=== PATIENT | male | born 1960 | race Caucasian/White ===

== ENCOUNTER → 2021-06-13 08:45 | Outpatient (CLI) | payer OTHER, SELFPAY ==
[2021-06-13 20:47] LABS: COVID19 - ORCAS (NP or Nasal) Negative (Negative)
== END ==
PROVIDERS: PCP Family Medicine; Visit Provider Family Medicine
DX: U07.1 COVID-19 (principal)
CPT/HCPCS: U0003

== ENCOUNTER → 2023-07-19 09:19 | Outpatient (CLI) | payer OTHER, SELFPAY ==
--- NOTE | 2023-07-19 09:21 | DI.MRI.S_ITS ---
PROCEDURE: MR SHOULDER LT WO CON INDICATIONS: Left shoulder dysfunction TECHNIQUE: Noncontrast oblique coronal T2 fast spin echo with fat saturation, oblique sagittal T1 spin echo and T2 fast spin echo with fat saturation, axial T1 spin echo and T2 fast spin echo with fat saturation through the shoulder. COMPARISON: [facility] ([place]), CR, XR SHOULDER LT MIN 2V, 06/20/2023, 10:57. FINDINGS: Image quality: Excellent. Rotator cuff: There is mild supraspinatus and infraspinatus tendinosis with low-grade partial articular sided tearing at the supraspinatus critical zone. The teres minor tendon is intact. There is mild subscapularis tendinosis. The rotator cuff musculature is normal in bulk. Bones and bursae: Subchondral cystic changes are seen at the posterior superior humeral head and greater tuberosity near the rotator tendon insertions. No focal glenohumeral cartilage defect is seen. Mild degenerate spurring is seen in the glenoid rim. Mild to moderate degenerative changes are seen in the acromioclavicular joint with subchondral cystic changes and marginal osteophyte formation. There is a small amount of fluid in the subacromial/subdeltoid bursa. No significant glenohumeral joint fluid is seen. Capsule and soft tissues: No displaced labral tear is seen. There is mild proximal biceps long head tendinosis. Partial effacement of the normal fat signal is noted at the rotator interval. There is mild thickening of the middle glenohumeral ligament and the anterior band of the inferior glenohumeral ligament. IMPRESSION: 1. Mild low-grade partial articular surface tearing of the distal supraspinatus tendon at the critical zone. Mild diffuse rotator cuff tendinosis. 2. Mild proximal biceps tendinosis. 3. [id number] acromioclavicular joint osteoarthrosis. 4. Small subacromial/subdeltoid bursal effusion or mild bursitis. 5. Partial effacement of the rotator interval fat and mild thickening of the inferior glenohumeral ligament are nonspecific, but can be seen in the setting of the clinical syndrome of adhesive capsulitis. Approved by: Hermes Kurtz M.D. on 07/19/2023 at 14:42
== END ==
LOC: MRI 09:20
PROVIDERS: PCP Physician Assistant; Referring Provider Physician Assistant; Visit Provider Physician Assistant
DX: S46.012A Strain of muscle(s) and tendon(s) of the rotator cuff of left shoulder, initial encounter (principal); M19.012 Primary osteoarthritis, left shoulder; X58.XXXA Exposure to other specified factors, initial encounter
CPT/HCPCS: 73221

== ENCOUNTER → 2024-12-31 09:52 | Outpatient (CLI) | payer BC, SELFPAY ==
[2024-12-31 19:42] LABS: Alanine Aminotransferase 35 IU/L (<50); Albumin 4.4 g/dL (3.5-5.0); Albumin Globulin Ratio 1.5 (1.0-2.8); Alkaline Phosphatase 60 U/L (38-126); Blood Urea Nitrogen 18 mg/dL (9-20); Calcium 9.1 mg/dL (8.4-10.2); Carbon Dioxide 26 mmol/L (22-32); Chloride 101 mmol/L (98-107); Cholesterol 244 mg/dL (140-199); Estimated Glomerular Filt Rate > 60 mL/min (>60); Globulin 2.9 g/dL (1.7-4.1); Glucose 108 mg/dL (70-99); HDL Cholesterol 53 mg/dL (40-60); HEMOLYSIS 31 (0-50); Potassium 4.7 mmol/L (3.4-5.1); Sodium 136 mmol/L (137-145); Total Protein 7.3 g/dL (6.3-8.2); Triglycerides 188 mg/dL (35-150); Uric Acid 7.0 mg/dL (3.5-8.5)
[2024-12-31 20:16] LABS: TSH w/ Reflex to FT4 2.02 uIU/mL (0.47-4.68)
[2024-12-31 20:38] LABS: Add Manual Diff / Slide Review NO; Hematocrit 43.2 % (41-53); Hemoglobin 14.9 g/dL (13.5-17.5); Lymphocytes Absolute Auto 2600 /uL (1100-4500); Mean Corpuscular HGB Conc 34.5 % (30-36); Mean Corpuscular Hemoglobin 33.8 PG (26-34); Mean Corpuscular Volume 98.2 fL (80-100); Platelet Count 175 X10^3/uL (150-400)
[2025-01-01 00:45] LABS: HIV 1 & 2 Ab/Ag 4th Gen Combo NEGATIVE (NEGATIVE); Hep C Virus Ab w/Reflex Quant NEGATIVE s/c (NEGATIVE)
== END ==
PROVIDERS: PCP Physician Assistant; Visit Provider Physician Assistant
DX: Z13.6 Encounter for screening for cardiovascular disorders (principal); R53.83 Other fatigue; M25.50 Pain in unspecified joint; Z82.61 Family history of arthritis; Z11.59 Encounter for screening for other viral diseases; Z11.4 Encounter for screening for human immunodeficiency virus [HIV]; S20.361A Insect bite (nonvenomous) of right front wall of thorax, initial encounter; Z12.5 Encounter for screening for malignant neoplasm of prostate; W57.XXXA Bitten or stung by nonvenomous insect and other nonvenomous arthropods, initial encounter
CPT/HCPCS: 80053; 80061; 84443; 84550; 85025; 85651; 86038; 86430; 86803; 87389; G0103

== ENCOUNTER → 2025-01-20 07:20 | Outpatient (CLI) | payer BC, SELFPAY | PROVIDERS: PCP Physician Assistant; Visit Provider Physician Assistant | DX: D64.9 Anemia, unspecified (principal); Z12.11 Encounter for screening for malignant neoplasm of colon | CPT/HCPCS: 82274 ==

== ENCOUNTER → 2025-05-05 08:54 | Outpatient (CLI) | payer MEDICARE, OTHER, SELFPAY ==
[2025-05-05 18:59] LABS: Add Manual Diff / Slide Review NO; Hematocrit 41.5 % (41-53); Hemoglobin 14.6 g/dL (13.5-17.5); Lymphocytes Absolute Auto 2000 /uL (1100-4500); Mean Corpuscular HGB Conc 35.1 % (30-36); Mean Corpuscular Hemoglobin 34.2 PG (26-34); Mean Corpuscular Volume 97.3 fL (80-100); Platelet Count 175 X10^3/uL (150-400)
[2025-05-05 19:07] LABS: HEMOLYSIS < 15 (0-50); Iron 143 ug/dL (49-181)
[2025-05-05 19:08] LABS: Cholesterol 225 mg/dL (140-199); HDL Cholesterol 69 mg/dL (40-60); Triglycerides 110 mg/dL (35-150)
[2025-05-05 19:18] LABS: Percent Iron Saturation 46 % (20-50); Total Iron Binding Capacity 311 ug/dL (261-462); Transferrin 272 mg/dL (206-381)
== END ==
PROVIDERS: PCP Physician Assistant; Visit Provider Physician Assistant
DX: E78.00 Pure hypercholesterolemia, unspecified (principal); D64.9 Anemia, unspecified
CPT/HCPCS: 80061; 83540; 83550; 85025